=== PATIENT | male | born 1970 | race Caucasian/White ===

== ENCOUNTER 2024-09-18 09:55 | Outpatient (CLI) | payer OTHER, SELFPAY ==
--- NOTE | ~2024-09-18 | XR_ITS ---
XR knee RT 3V Ordering provider: Pasha Matias MD History: . RIGHT KNEE PAIN prev surgery in 2022 to remove bone fragment . Comparison: None. FINDINGS: BONES: No acute fracture or dislocation. JOINT SPACES: Slight narrowing of the medial compartment. Marginal osteophytes in the patella. SOFT TISSUES: Vascular calcifications. Calcification seen in the suprapatellar bursa area suggestive of synovial chondromatosis. IMPRESSION: No acute osseous abnormality right knee. Mild to moderate osteoarthritic changes. Reviewed, dictated and finalized at location A.
--- OUTSIDE RECORDS SUMMARY | 2024-09-18 11:02 | XMS_ITS | Clinical Summary ---
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 Gender Identity Not on file Sexual Orientation Not on file Plan of Treatment Health Maintenance Due Date Last Done Comments Colorectal Cancer Screening Colonoscopy (10 Years) 1968 Annual Physical 08/12/1971 Hepatitis C 1986 DTaP, Tdap and Td Vaccines ( 1 - Tdap) 08/12/1987 Hepatitis B Vaccines (1 of 3 - 19+ 3-dose series) 08/12/1987 Pneumococcal Vaccine: 50+ Ye ars (1 of 1 - PCV) 2018 Zoster Vaccines (1 of 2) 2018 COVID-19 Vaccine (2023-2 5 season) 2024 Meningococcal B Vaccine Aged Out No l onger eligible based on patient's age to complete this topic Meningococcal Vaccine Aged Out No carolyn max eligible based on patient's age to complete this topic RSV Immunizations Under 20 Months Aged Out No longer eligible based on patient's age to complete this topic
== END 2024-09-18 09:56 | disposition home or self-care (01) ==
LOC: CHSIMG 10:01
PROVIDERS: PCP Internal Medicine; Visit Provider Internal Medicine
DX: M25.561 Pain in right knee (principal); M17.11 Unilateral primary osteoarthritis, right knee
CPT/HCPCS: 73562